=== PATIENT | female | born 1955 | race Caucasian/White ===

== ENCOUNTER → 2016-12-08 | Outpatient (CLI) | payer BC ==
[2016-12-08 09:52] LABS: BASOPHILS % 0.8 % (0.0-2.0); EOSINOPHILS % 3.5 % (0.0-5.0); HEMATOCRIT. 37.5 % (36.0-48.0); HEMOGLOBIN. 12.9 g/dL (12.0-16.0); LYMPHOCYTES % 23.8 % (20.0-50.0); MEAN CORPUSCULAR HEMOGLOBIN 32.3 pg (28.0-32.0); MEAN PLATELET VOLUME 10.9 fl (7.4-10.4); MONOCYTES % 8.7 % (2.0-8.0); NEUTROPHILS % 63.2 % (40.0-76.0); PLATELET 175 x1000/uL (130-400); RED BLOOD CELL COUNT 3.99 mill/uL (4.2-5.4); RED CELL DISTRIBUTION WIDTH 12.7 % (11.6-14.6)
[2016-12-08 10:20] LABS: CARBON DIOXIDE 21 mEq/L (21-32); CHLORIDE 110 mEq/L (98-107); HDL CHOLESTEROL 65 mg/dL (40-59); LDL CHOLESTEROL 59 mg/dL (5-100)
== END | disposition home or self-care (01) ==
LOC: LAB 09:20
PROVIDERS: ATTEND Internal Medicine Critical Care Medicine
DX: I10 Essential (primary) hypertension (principal); E78.5 Hyperlipidemia, unspecified
CPT/HCPCS: 36415; 80053; 80061; 85025

== ENCOUNTER → 2017-04-12 | Outpatient (CLI) | payer BC ==
[2017-04-12 09:25] LABS: CARBON DIOXIDE 22 mEq/L (21-32); CHLORIDE 111 mEq/L (98-107); HDL CHOLESTEROL 60 mg/dL (40-59); LDL CHOLESTEROL 96 mg/dL (5-100)
== END | disposition home or self-care (01) ==
LOC: LAB 07:39
PROVIDERS: ATTEND Internal Medicine Critical Care Medicine
DX: M54.5 Low back pain (principal); E78.5 Hyperlipidemia, unspecified
CPT/HCPCS: 36415; 80053; 80061

== ENCOUNTER → 2017-06-28 | Outpatient (CLI) | payer BC | END | disposition home or self-care (01) | LOC: MAMMO 09:34 | PROVIDERS: ATTEND Internal Medicine Critical Care Medicine | DX: Z12.31 Encounter for screening mammogram for malignant neoplasm of breast (principal); M24.10 Other articular cartilage disorders, unspecified site | CPT/HCPCS: 77067 ==

== ENCOUNTER → 2017-08-20 | Outpatient (CLI) | payer BC ==
[2017-08-20 08:36] LABS: CHLORIDE 111 mEq/L (98-107)
[2017-08-20 09:00] LABS: HDL CHOLESTEROL 58 mg/dL (40-59); LDL CHOLESTEROL 94 mg/dL (5-100)
== END | disposition home or self-care (01) ==
LOC: LAB 07:31
PROVIDERS: ATTEND Internal Medicine Critical Care Medicine
DX: E78.5 Hyperlipidemia, unspecified (principal)
CPT/HCPCS: 36415; 80053; 80061; 82306

== ENCOUNTER → 2017-12-08 | Outpatient (CLI) | payer BC ==
[2017-12-08 12:49] LABS: BASOPHILS % 0.5 % (0.0-2.0); EOSINOPHILS % 2.4 % (0.0-5.0); HEMATOCRIT. 39.1 % (36.0-48.0); HEMOGLOBIN. 13.5 g/dL (12.0-16.0); LYMPHOCYTES % 26.5 % (20.0-50.0); MEAN CORPUSCULAR HEMOGLOBIN 32.7 pg (28.0-32.0); MEAN CORPUSCULAR VOLUME 95.3 fL (81.0-99.0); MEAN PLATELET VOLUME 10.5 fl (7.4-10.4); MONOCYTES % 9.4 % (2.0-8.0); NEUTROPHILS % 61.2 % (40.0-76.0); PLATELET 180 x1000/uL (130-400); RED BLOOD CELL COUNT 4.11 mill/uL (4.2-5.4); RED CELL DISTRIBUTION WIDTH 12.2 % (11.6-14.6)
[2017-12-08 13:10] LABS: CHLORIDE 110 mEq/L (98-107)
== END | disposition home or self-care (01) ==
LOC: LAB 12:21
PROVIDERS: ATTEND Podiatrist Foot & Ankle Surgery
DX: M10.9 Gout, unspecified (principal); M25.50 Pain in unspecified joint
CPT/HCPCS: 36415; 80053; 84550; 85025

== ENCOUNTER → 2018-02-13 | Outpatient (CLI) | payer BC ==
[2018-02-13 10:57] LABS: CHLORIDE 107 mEq/L (98-107)
[2018-02-13 11:04] LABS: LDL CHOLESTEROL 105 mg/dL (5-100)
[2018-02-13 11:09] LABS: HDL CHOLESTEROL 55 mg/dL (40-59)
== END | disposition home or self-care (01) ==
LOC: LAB 10:20
PROVIDERS: ATTEND Internal Medicine Critical Care Medicine
DX: E78.5 Hyperlipidemia, unspecified (principal)
CPT/HCPCS: 36415; 80053; 80061; 84550

== ENCOUNTER → 2018-05-12 | Outpatient (CLI) | payer BC | END | disposition home or self-care (01) | LOC: LAB 07:36 | PROVIDERS: ATTEND Internal Medicine Critical Care Medicine | DX: E78.49 Other hyperlipidemia (principal); M10.9 Gout, unspecified | CPT/HCPCS: 36415; 80061; 84550 ==

== ENCOUNTER → 2018-08-24 | Outpatient (CLI) | payer BC | END | disposition home or self-care (01) | LOC: RAD 09:28 | PROVIDERS: ATTEND Internal Medicine Critical Care Medicine | DX: M81.0 Age-related osteoporosis without current pathological fracture (principal) | CPT/HCPCS: 77080 ==

== ENCOUNTER → 2018-11-09 | Outpatient (CLI) | payer BC ==
[2018-11-09 10:14] LABS: BASOPHILS % 0.6 % (0.0-2.0); EOSINOPHILS % 3.8 % (0.0-5.0); HEMATOCRIT. 37.3 % (36.0-48.0); HEMOGLOBIN. 12.7 g/dL (12.0-16.0); LYMPHOCYTES % 28.4 % (20.0-50.0); MEAN CORPUSCULAR HEMOGLOBIN 32.8 pg (28.0-32.0); MEAN CORPUSCULAR VOLUME 96.6 fL (81.0-99.0); MEAN PLATELET VOLUME 10.5 fl (7.4-10.4); MONOCYTES % 9.2 % (2.0-8.0); PLATELET 163 x1000/uL (130-400); RED BLOOD CELL COUNT 3.86 mill/uL (4.2-5.4); RED CELL DISTRIBUTION WIDTH 12.3 % (11.6-14.6)
[2018-11-09 10:22] LABS: CHLORIDE 111 mEq/L (98-107)
[2018-11-09 10:30] LABS: HDL CHOLESTEROL 62 mg/dL (40-59)
[2018-11-09 10:31] LABS: LDL CHOLESTEROL 98 mg/dL (5-100)
== END | disposition home or self-care (01) ==
LOC: LAB 09:48
PROVIDERS: ATTEND Internal Medicine Critical Care Medicine
DX: E78.5 Hyperlipidemia, unspecified (principal); M10.9 Gout, unspecified
CPT/HCPCS: 36415; 80061; 82306; 84550

== ENCOUNTER → 2019-09-05 | Outpatient (CLI) | payer BC ==
[2019-09-05 08:46] LABS: CLARITY URINE CLEAR (CLEAR); COLOR URINE YELLOW (YELLOW); KETONES URINE NEGATIVE (NEGATIVE); LEUKOCYTE ESTERASE URINE NEGATIVE (NEGATIVE); NITRITE URINE NEGATIVE (NEGATIVE); OCCULT BLOOD URINE NEGATIVE (NEGATIVE); PH URINE 7.5 (4.5-8.0); PROTEIN URINE NEGATIVE (NEGATIVE); SPECIFIC GRAVITY URINE 1.016 (1.005-1.030); UROBILINOGEN URINE 0.2 E.U./dL (0.2-1.0)
[2019-09-05 08:56] LABS: BASOPHILS % 0.8 % (0.0-2.0); EOSINOPHILS % 4.3 % (0.0-5.0); HEMATOCRIT. 39.3 % (36.0-48.0); HEMOGLOBIN. 13.3 g/dL (12.0-16.0); LYMPHOCYTES % 32.7 % (20.0-50.0); MEAN CORPUSCULAR HEMOGLOBIN 32.5 pg (28.0-32.0); MEAN CORPUSCULAR VOLUME 95.9 fL (81.0-99.0); MEAN PLATELET VOLUME 10.8 fl (7.4-10.4); MONOCYTES % 9.5 % (2.0-8.0); NEUTROPHILS % 52.7 % (40.0-76.0); PLATELET 183 x1000/uL (130-400); RED CELL DISTRIBUTION WIDTH 12.6 % (11.6-14.6)
[2019-09-05 09:39] LABS: CHLORIDE 110 mEq/L (98-107)
[2019-09-05 09:47] LABS: LDL CHOLESTEROL 124 mg/dL (5-100)
[2019-09-05 09:48] LABS: HDL CHOLESTEROL 56 mg/dL (40-59)
[2019-09-05 09:49] LABS: TOTAL IRON BINDING CAPACITY 278 ug/dL (250-450)
[2019-09-05 10:03] LABS: FOLIC ACID (FOLATE) SERUM >20 ng/mL ng/mL (>5.38)
[2019-09-05 10:14] LABS: VITAMIN B12 SERUM 411 pg/mL (211-911)
== END | disposition home or self-care (01) ==
LOC: LAB 08:17
PROVIDERS: ATTEND Internal Medicine Geriatric Medicine
DX: Z00.00 Encounter for general adult medical examination without abnormal findings (principal); N39.0 Urinary tract infection, site not specified
CPT/HCPCS: 36415; 80053; 80061; 81003; 82306; 82607; 82746; 83036; 83540; 83550; 84443; 84550; 85025; 86592

== ENCOUNTER → 2019-11-29 | Outpatient (CLI) | payer BC | END | disposition home or self-care (01) | LOC: MAMMO 09:44 | PROVIDERS: ATTEND Internal Medicine Geriatric Medicine | DX: Z13.820 Encounter for screening for osteoporosis (principal); M85.88 Other specified disorders of bone density and structure, other site | CPT/HCPCS: 77080 ==

== ENCOUNTER → 2020-02-08 | Outpatient (CLI) | payer BC ==
[2020-02-08 09:01] LABS: BASOPHILS % 0.8 % (0.0-2.0); EOSINOPHILS % 6.7 % (0.0-5.0); HEMATOCRIT. 37.3 % (36.0-48.0); HEMOGLOBIN. 12.7 g/dL (12.0-16.0); LYMPHOCYTES % 27.9 % (20.0-50.0); MEAN CORPUSCULAR HEMOGLOBIN 32.7 pg (28.0-32.0); MEAN CORPUSCULAR VOLUME 95.9 fL (81.0-99.0); MEAN PLATELET VOLUME 10.2 fl (7.4-10.4); MONOCYTES % 9.8 % (2.0-8.0); NEUTROPHILS % 54.8 % (40.0-76.0); PLATELET 190 x1000/uL (130-400); RED BLOOD CELL COUNT 3.89 mill/uL (4.2-5.4); RED CELL DISTRIBUTION WIDTH 12.3 % (11.6-14.6)
[2020-02-08 09:11] LABS: CHLORIDE 109 mEq/L (98-107)
[2020-02-08 09:19] LABS: HDL CHOLESTEROL 52 mg/dL (40-59)
[2020-02-08 09:20] LABS: LDL CHOLESTEROL 80 mg/dL (5-100)
== END | disposition home or self-care (01) ==
LOC: CARD 08:23
PROVIDERS: ATTEND Internal Medicine Geriatric Medicine
DX: S32.050A Wedge compression fracture of fifth lumbar vertebra, initial encounter for closed fracture (principal); S33.120A Subluxation of L2/L3 lumbar vertebra, initial encounter; S33.140A Subluxation of L4/L5 lumbar vertebra, initial encounter; M48.061 Spinal stenosis, lumbar region without neurogenic claudication; M47.816 Spondylosis without myelopathy or radiculopathy, lumbar region; M43.8X6 Other specified deforming dorsopathies, lumbar region; M85.88 Other specified disorders of bone density and structure, other site; I10 Essential (primary) hypertension; M15.0 Primary generalized (osteo)arthritis; M10.079 Idiopathic gout, unspecified ankle and foot; M16.12 Unilateral primary osteoarthritis, left hip; R60.9 Edema, unspecified; M25.751 Osteophyte, right hip; X58.XXXA Exposure to other specified factors, initial encounter; Y93.89 Activity, other specified; Y92.89 Other specified places as the place of occurrence of the external cause; Y99.8 Other external cause status
CPT/HCPCS: 36415; 72100; 73521; 80053; 80061; 84443; 85025; 85651; 93306

== ENCOUNTER → 2020-03-06 | Outpatient (CLI) | payer BC ==
[~2020-03-06] MED LIST: REGADENOSON 0.4 MG/5 ML IV ONE
== END | disposition home or self-care (01) ==
LOC: NM 07:38
PROVIDERS: ATTEND Specialist
DX: I10 Essential (primary) hypertension (principal); R94.31 Abnormal electrocardiogram [ECG] [EKG]
CPT/HCPCS: 78452; 93017; A9500; J2785

== ENCOUNTER → 2020-10-17 | Outpatient (CLI) | payer BC ==
[2020-10-17 10:52] LABS: CHLORIDE 108 mEq/L (98-107)
[2020-10-17 11:02] LABS: LDL CHOLESTEROL 80 mg/dL (5-100)
[2020-10-17 11:04] LABS: TOTAL IRON BINDING CAPACITY 289 ug/dL (250-450)
[2020-10-17 11:06] LABS: B-HCG QUANTITATIVE 3 mIU/mL (<3); HDL CHOLESTEROL 68 mg/dL (40-59); T4 FREE 0.87 ng/dL (0.76-1.46)
[2020-10-17 11:15] LABS: FERRITIN 153 ng/mL (10-291)
[2020-10-17 11:18] LABS: FOLIC ACID (FOLATE) SERUM >20 ng/mL ng/mL (>5.38)
[2020-10-17 11:29] LABS: VITAMIN B12 SERUM 366 pg/mL (211-911)
[2020-10-17 13:59] LABS: CLARITY URINE CLEAR (CLEAR); COLOR URINE YELLOW (YELLOW); KETONES URINE NEGATIVE (NEGATIVE); LEUKOCYTE ESTERASE URINE NEGATIVE (NEGATIVE); NITRITE URINE NEGATIVE (NEGATIVE); OCCULT BLOOD URINE NEGATIVE (NEGATIVE); PH URINE 5.5 (4.5-8.0); PROTEIN URINE NEGATIVE (NEGATIVE); SPECIFIC GRAVITY URINE 1.022 (1.005-1.030); UROBILINOGEN URINE 0.2 E.U./dL (0.2-1.0)
== END | disposition home or self-care (01) ==
LOC: LAB 09:18
PROVIDERS: ATTEND Internal Medicine Geriatric Medicine
DX: Z00.01 Encounter for general adult medical examination with abnormal findings (principal); I10 Essential (primary) hypertension; N39.0 Urinary tract infection, site not specified
CPT/HCPCS: 36415; 80053; 80061; 81003; 82306; 82607; 82728; 82746; 83036; 83540; 83550; 84436; 84439; 84443; 84479; 84550; 84702; 86592